=== PATIENT | female | born 1940 | race Caucasian/White ===

== ENCOUNTER 2018-06-12 10:35 | Emergency (ER) | payer MEDICARE, BC ==
--- NOTE | 2018-06-12 11:06 | RAD ---
SINGLE VIEW OF THE CHEST: COMPARISON: None. HISTORY: Chest pain. FINDINGS: A single view of the chest shows a normal-size cardiomediastinal silhouette. There is elevation of t he left hemidiaphragm. There is no evidence of consolidation, mass, or pleural effusion. IMPRESSION: No evidence of acute cardiopulmonary disease. POS: [facility]
[2018-06-12] MEDS ORDERED: Aspirin Chewable 81 MG TAB ONE (11:10)
[2018-06-12] MEDS ORDERED: Nitroglycerin 2% Ointment 1 INCH/1 GM Packet ONE ×2 (11:10→12:37)
[2018-06-12 11:26] LABS: #Eosinphils 0.2 thou/uL (0.0-0.7); #Lymphocytes 1.7 thou/uL (1.20-3.40); #Monocytes 0.4 thou/uL (0.11-0.59); #Neutrophils 1.9 thou/uL (1.40-6.50); %Eosinophils 4.4 % (0.0-10.0); %Lymphocytes 39.9 % (21.0-51.0); %Neutrophils 45.7 % (42.0-75.0); ALT (SGPT) 14 U/L (8-55); AST (SGOT) 18 U/L (5-34); Albumin 4.2 g/dL (3.4-4.8); Alkaline Phosphatase 69 U/L (40-150); Anion Gap 14 mmol/L (10-20); BUN (Urea Nitrogen) 15 mg/dL (9.8-20.1); Bilirubin, Total 0.3 mg/dL (0.2-1.2); Calc. Creatinine Clearance 0 mL/min (70-130); Calcium 9.8 mg/dL (7.8-10.44); Carbon Dioxide 27 mmol/L (23-31); Chloride 104 mmol/L (98-107); Estimated GFR-MDRD 66; Globulin 2.6 g/dL (2.4-3.5); Glucose 117 mg/dL (83-110); Hemoglobin 11.9 g/dL (12.0-16.0); Mean Corpuscular Hemoglobin 24.4 pg (27.0-31.0); Mean Corpuscular Volume 78.8 fL (78.0-98.0); Mean Platelet Volume 7.5 fL (7.4-10.4); Platelet Count 211 thou/uL (130-400); Potassium 4.8 mmol/L (3.5-5.1); Protein, Total 6.8 g/dL (6.0-8.3); Red Blood Cell (RBC) Count 4.89 mill/uL (4.20-5.40); Sodium 140 mmol/L (136-145); White Blood Cell (WBC) Count 4.2 thou/uL (4.8-10.8)
[2018-06-12] MEDS ORDERED: Enoxaparin Sodium 80 MG/0.8 ML SYRINGE ONE (12:37)
[2018-06-12] MEDS ORDERED: Amlodipine 5 MG TAB ONE (12:37)
[2018-06-12 13:07] LABS: PTT 25.8 SEC (22.9-36.1); Prothrombin Time 12.9 SEC (12.0-14.7)
== END 2018-06-12 17:57 | disposition short-term general hospital (02) ==
LOC: MADERS 10:35
DX: I24.9 Acute ischemic heart disease, unspecified (principal); I10 Essential (primary) hypertension
CPT/HCPCS: 36415; 71045; 80053; 83880; 84484; 85025; 85610; 85730; 93005; 96372; J1650

== ENCOUNTER 2019-05-02 00:37 | Emergency (ER) | payer MEDICARE, BC ==
[2019-05-02] MEDS ORDERED: Nitroglycerin 2% Ointment 1 INCH/1 GM Packet ONE (01:49)
[2019-05-02] MEDS ORDERED: Aspirin Chewable 81 MG TAB ONE (01:49)
[2019-05-02 02:02] LABS: #Basophils 0.1 thou/uL (0.0-0.2); #Eosinphils 0.1 thou/uL (0.0-0.7); #Lymphocytes 1.8 thou/uL (1.20-3.40); #Monocytes 0.4 thou/uL (0.11-0.59); #Neutrophils 3.1 thou/uL (1.40-6.50); %Basophils 1.1 % (0.0-1.0); %Eosinophils 2.7 % (0.0-10.0); %Lymphocytes 33.6 % (21.0-51.0); %Monocytes 6.9 % (0.0-10.0); %Neutrophils 55.8 % (42.0-75.0); Hemoglobin 12.7 g/dL (12.0-16.0); Mean Corpuscular HGB CONC 30.4 g/dL (32.0-36.0); Mean Corpuscular Volume 85.3 fL (78.0-98.0); Mean Platelet Volume 7.9 fL (7.4-10.4); Platelet Count 223 thou/uL (130-400); RBC Distribution Width 13.4 % (11.5-14.5); Red Blood Cell (RBC) Count 4.89 mill/uL (4.20-5.40); White Blood Cell (WBC) Count 5.5 thou/uL (4.8-10.8)
[2019-05-02 02:23] LABS: ALT (SGPT) 28 U/L (8-55); AST (SGOT) 26 U/L (5-34); Albumin 4.4 g/dL (3.4-4.8); Alkaline Phosphatase 57 U/L (40-110); Anion Gap 15 mmol/L (10-20); BUN (Urea Nitrogen) 14 mg/dL (9.8-20.1); Bilirubin, Total 0.4 mg/dL (0.2-1.2); Calc. Creatinine Clearance 0 mL/min (70-130); Calcium 9.6 mg/dL (7.8-10.44); Carbon Dioxide 27 mmol/L (23-31); Chloride 102 mmol/L (98-107); Estimated GFR-MDRD 71; Globulin 2.7 g/dL (2.4-3.5); Glucose 106 mg/dL (83-110); Potassium 3.8 mmol/L (3.5-5.1); Protein, Total 7.1 g/dL (6.0-8.3); Sodium 140 mmol/L (136-145)
[2019-05-02] MEDS ORDERED: Sodium Chloride 0.9% 1,000 ML ONE (03:03)
--- NOTE | 2019-05-02 08:28 | CT ---
PRELIMINARY REPORT/[facility]/EMERGENCY AFTER HOURS PROCEDURE: EXAM: CTA Chest with Intravenous Contrast CLINICAL HISTORY: SOB, ELEVATED D DIMER TECHNIQUE: Axial CTA images of the chest with intravenous contrast. MIP reconstructed images were created and re viewed. CONTRAST: With; 120 ml ISOVUE 370 COMPARISON: None provided. FINDINGS: PULMONARY ARTERIES There is no intraluminal filling defect suspicious for PE. AORTA No thoracic aortic aneurysm or dissection. LUNGS The lungs are clear. No pulmonary mass. No focal airspace consolidation. Peripheral right lower lobe calcified granuloma PLEURAL SPACES No pleural effusion. No pneumothorax. Elevation of the left hemidiaphragm. HEART AND MEDIASTINUM No cardiomegaly. No significant pericardial effusion. LYMPH NODES No lymphadenopathy. BONES No focal osseous abnormality or acute fracture. Degenerative changes of the spine. CHEST WALL AND UPPER ABDOMEN Images through the upper abdomen are unremarkable. The chest wall is unremarkable. IMPRESSION: Unremarkable CTA of the chest. ELECTRONICALLY SIGNED BY: Zaid Hi DO May 02, 2019 3:17:21 AM [employer] This report is intended for review by the ordering physician only, in accordance of law. If you recei ve this report in error, please call [facility] at [phone]. FINAL REPORT CTA CHEST: No evidence of pulmonary embolus. No evidence of lung infiltrate. I am in agreement with the preliminary report issued by [facility]. POS: [facility]
--- NOTE | 2019-05-02 09:29 | RAD ---
PORTABLE CHEST: Date: 05/02/2019 INDICATION: Shortness of breath. COMPARISON: 06/12/18. FINDINGS/IMPRESSION: Elevated left hemidiaphragm is again noted. The lungs are clear. No acute finding or interval change. POS: [facility]
[2019-05-02] MEDS ORDERED: Iopamidol 370 76% 125 ML VIAL FS ONE (10:23)
[2019-05-02] MEDS ORDERED: Sodium Chloride 0.9% 100 ML BAG ONE (11:03)
== END 2019-05-02 05:16 | disposition short-term general hospital (02) ==
LOC: MADERS 00:37
DX: R06.00 Dyspnea, unspecified (principal); I10 Essential (primary) hypertension; I25.10 Atherosclerotic heart disease of native coronary artery without angina pectoris; E11.9 Type 2 diabetes mellitus without complications; Z79.82 Long term (current) use of aspirin; Z79.899 Other long term (current) drug therapy
CPT/HCPCS: 36415; 71045; 71275; 80053; 83880; 84484; 85025; 85379; 93005; 96360; 96361; J3490; J7050; Q9967